=== PATIENT | female | born 1950 | race African-American/Black ===

== ENCOUNTER 2022-09-25 11:53 | Emergency (ER) | payer MEDICARE ==
[~2022-09-25] VITALS: Ht 172.7 cm; Wt 77.0 kg
[2022-09-25 11:57] VITALS: BP 147/80; PULSE 62; RESP 16; TEMP 98.1; O2SAT 100
[2022-09-25] MEDS ORDERED: ACETAMINOPHEN 325MG TABLET PO STA (12:08)
[2022-09-25] MEDS ORDERED: IBUP-2029 MT (14:20)
== END 2022-09-25 16:18 | disposition home or self-care (01) ==
LOC: ER 11:53
DX: S09.90XA Unspecified injury of head, initial encounter (principal); I10 Essential (primary) hypertension; J45.909 Unspecified asthma, uncomplicated; Z98.890 Other specified postprocedural states; W01.0XXA Fall on same level from slipping, tripping and stumbling without subsequent striking against object, initial encounter; Y93.89 Activity, other specified; Y92.89 Other specified places as the place of occurrence of the external cause; Y99.8 Other external cause status
CPT/HCPCS: 99284